=== PATIENT | female | born 1990 | race African-American/Black ===

== ENCOUNTER 2018-10-02 22:38 | Emergency (ER) | payer MEDICAID ==
[~2018-10-02] VITALS: Ht 167.6 cm; Wt 79.4 kg
[2018-10-02 22:44] VITALS: Ht 167.6 cm; Wt 79.4 kg
[2018-10-03 02:08] VITALS: BP 119/78
== END 2018-10-03 02:08 | disposition home or self-care (01) ==
LOC: ED 22:38
DX: S02.2XXA Fracture of nasal bones, initial encounter for closed fracture (principal); S63.283A Dislocation of proximal interphalangeal joint of left middle finger, initial encounter; S09.8XXA Other specified injuries of head, initial encounter; Z88.0 Allergy status to penicillin; Y04.0XXA Assault by unarmed brawl or fight, initial encounter; Y93.9 Activity, unspecified; Y92.89 Other specified places as the place of occurrence of the external cause; Y99.8 Other external cause status
CPT/HCPCS: J1885; J2001; Q0092

== ENCOUNTER 2018-10-03 21:29 | Emergency (ER) | payer MEDICAID ==
[~2018-10-03] VITALS: Ht 167.6 cm; Wt 77.6 kg
[2018-10-03 21:39] VITALS: Ht 167.6 cm; Wt 77.6 kg
[2018-10-03 23:53] VITALS: BP 108/75
== END 2018-10-03 23:53 | disposition home or self-care (01) ==
LOC: ED 21:29
DX: B37.3 Candidiasis of vulva and vagina (principal); S02.2XXA Fracture of nasal bones, initial encounter for closed fracture; J45.909 Unspecified asthma, uncomplicated; Z88.0 Allergy status to penicillin; Y04.0XXA Assault by unarmed brawl or fight, initial encounter; Y93.89 Activity, other specified; Y92.89 Other specified places as the place of occurrence of the external cause; Y99.8 Other external cause status

== ENCOUNTER 2019-02-18 16:43 | Emergency (ER) | payer MEDICAID ==
[~2019-02-18] VITALS: Ht 167.6 cm; Wt 78.0 kg
[2019-02-18 16:57] VITALS: Ht 167.6 cm; Wt 78.0 kg
[2019-02-18 18:36] VITALS: BP 111/56
[2019-02-20 05:08] LABS: RAPID PLASMA REAGIN Non Reactive (Non Reactive)
== END 2019-02-18 18:36 | disposition home or self-care (01) ==
LOC: ED 16:43
PROVIDERS: Emergency Medicine
DX: A64 Unspecified sexually transmitted disease (principal); N73.9 Female pelvic inflammatory disease, unspecified; J45.909 Unspecified asthma, uncomplicated; Z88.0 Allergy status to penicillin
CPT/HCPCS: 87491; 87591; 99406